=== PATIENT | male | born 2000 | race African-American/Black ===

== ENCOUNTER 2018-01-18 00:41 | Emergency (ER) | payer BC ==
[~2018-01-18] VITALS: Ht 190.5 cm; Wt 79.1 kg
[2018-01-18 00:48] VITALS: Ht 190.5 cm; Wt 79.1 kg
[2018-01-18] MEDS ORDERED: FLAGYL500 MG PO (01:48)
[2018-01-18] MEDS ORDERED: BACTRIM DS TABL1 TAB PO (01:48)
[2018-01-18 02:23] VITALS: BP 129/66
== END 2018-01-18 02:24 | disposition home or self-care (01) ==
LOC: D.ER 00:41
DX: S81.851A Open bite, right lower leg, initial encounter (principal); W54.0XXA Bitten by dog, initial encounter; Y93.89 Activity, other specified; Y92.019 Unspecified place in single-family (private) house as the place of occurrence of the external cause

== ENCOUNTER 2019-10-05 16:13 | Emergency (ER) | payer BC ==
[~2019-10-05] VITALS: Ht 190.5 cm; Wt 81.8 kg
[~2019-10-05 16:13] MED LIST: BACTRIM DS TABL1 TAB PO; FLAGYL500 MG PO
[2019-10-05 16:26] VITALS: Ht 190.5 cm; Wt 81.8 kg
[2019-10-05 18:22] LABS: BILIRUBIN NEGATIVE (NEGATIVE); GLUCOSE NEGATIVE (NEGATIVE); KETONE NEGATIVE (NEGATIVE); NITRITE NEGATIVE (NEGATIVE); SPECIFIC GRAVITY 1.005 (1.005-1.020); UROBILINOGEN NORMAL (NORMAL)
[2019-10-05 18:46] VITALS: BP 128/68
== END 2019-10-05 18:47 | disposition home or self-care (01) ==
LOC: D.ER 16:13
PROVIDERS: Emergency Medicine
DX: Z20.2 Contact with and (suspected) exposure to infections with a predominantly sexual mode of transmission (principal); R30.9 Painful micturition, unspecified; R36.9 Urethral discharge, unspecified

== ENCOUNTER 2020-01-28 15:04 | Emergency (ER) | payer BC ==
[~2020-01-28] VITALS: Ht 190.5 cm; Wt 84.1 kg
[2020-01-28 15:13] VITALS: Ht 190.5 cm; Wt 84.1 kg
[2020-01-28 15:48] VITALS: BP 136/78
== END 2020-01-28 15:49 | disposition home or self-care (01) ==
LOC: D.ER 15:04
DX: S61.213A Laceration without foreign body of left middle finger without damage to nail, initial encounter (principal); W45.8XXA Other foreign body or object entering through skin, initial encounter; Y93.9 Activity, unspecified; Y92.9 Unspecified place or not applicable